=== PATIENT | female | born 1955 | race Caucasian/White ===

== ENCOUNTER 2020-01-26 09:01 | Outpatient (CLI) | payer OTHER, SELFPAY ==
[2020-01-26 09:27] LABS: Alanine Aminotransferase 17 U/L (4-35); Albumin Level 4.4 g/dL (3.5-5.1); Alkaline Phosphatase 92 U/L (38-126); Aspartate Amino Transferase 23 U/L (14-36); Bilirubin,Total 0.4 mg/dL (0.2-1.3); Blood Urea Nitrogen 15 mg/dL (7-17); Calcium 9.1 mg/dL (8.4-10.2); Carbon Dioxide 27 mmol/L (22-30); Chloride 103 mmol/L (98-107); Cholesterol 246 mg/dL (0-200); Estimated Glomerular Filt Rate > 60; Glucose 91 mg/dL (65-105); HDL Direct 34 mg/dL; Potassium 4.5 mmol/L (3.4-5.0); Sodium 136 mmol/L (137-145); Triglycerides 250 mg/dL (<150)
[2020-01-26 09:38] LABS: LDL Cholesterol Direct 157 mg/dL
== END 2020-01-26 09:02 | disposition home or self-care (01) ==
LOC: ANHLAB 09:03
PROVIDERS: PCP Family Medicine; Visit Provider Family Medicine
DX: E78.5 Hyperlipidemia, unspecified (principal); I10 Essential (primary) hypertension
CPT/HCPCS: 36415; 80053; 80061

== ENCOUNTER 2020-09-24 11:28 | Outpatient (CLI) | payer OTHER, SELFPAY | END 2020-09-24 11:29 | disposition home or self-care (01) | LOC: ANHCOVIDVC 11:28 | PROVIDERS: PCP Family Medicine | DX: Z23 Encounter for immunization (principal) | CPT/HCPCS: 0001A; 91300 ==

== ENCOUNTER 2020-10-15 11:32 | Outpatient (CLI) | payer OTHER, SELFPAY | END 2020-10-15 11:33 | disposition home or self-care (01) | LOC: ANHCOVIDVC 11:32 | PROVIDERS: PCP Family Medicine | DX: Z23 Encounter for immunization (principal) | CPT/HCPCS: 0002A; 91300 ==

== ENCOUNTER 2021-02-07 07:16 | Outpatient (CLI) | payer OTHER, SELFPAY ==
[2021-02-07 07:35] LABS: Hematocrit 38.2 % (37.0-47.0); Hemoglobin 11.6 g/dL (12.0-15.0); Mean Corpuscular HGB Conc 30.4 g/dl (32-36); Mean Corpuscular Hemoglobin 27.8 pg (26-34); Mean Corpuscular Volume 91.6 fl (80-100); Mean Platelet Volume 11.8 fl (7.4-10.4); Platelet Count Result 227 k/mm3 (150-375); Red Blood Count 4.17 M/mm3 (4.2-5.4); Red Cell Distribution Width 14.6 % (11.5-14.5); White Blood Count 8.1 K/mm3 (4.5-10.0)
[2021-02-07 07:45] LABS: Alanine Aminotransferase 22 U/L (4-35); Albumin Level 4.3 g/dL (3.5-5.1); Alkaline Phosphatase 88 U/L (38-126); Anion Gap 9 mmol/L (8-16); Aspartate Amino Transferase 23 U/L (14-36); Bilirubin,Total 0.6 mg/dL (0.2-1.3); Blood Urea Nitrogen 11 mg/dL (7-17); Calcium 9.5 mg/dL (8.4-10.2); Carbon Dioxide 29 mmol/L (22-30); Chloride 102 mmol/L (98-107); Cholesterol 230 mg/dL (0-200); Estimated Glomerular Filt Rate > 60; Glucose 93 mg/dL (65-110); HDL Direct 35 mg/dL; Potassium 4.4 mmol/L (3.4-5.0); Sodium 140 mmol/L (137-145); Triglycerides 238 mg/dL (<150)
[2021-02-07 07:55] LABS: LDL Cholesterol Direct 136 mg/dL
[2021-02-07 08:27] LABS: Vitamin D 25 Hydroxy 13.1 ng/mL
[2021-02-07 09:23] LABS: Hemoglobin A1C 5.5 % (<5.7)
== END 2021-02-07 07:17 | disposition home or self-care (01) ==
PROVIDERS: PCP Family Medicine; Visit Provider Family Medicine
DX: Z00.00 Encounter for general adult medical examination without abnormal findings (principal); I10 Essential (primary) hypertension; E78.2 Mixed hyperlipidemia; E55.9 Vitamin D deficiency, unspecified; R53.83 Other fatigue; E11.9 Type 2 diabetes mellitus without complications
CPT/HCPCS: 36415; 80053; 80061; 82306; 83036; 84443; 85027

== ENCOUNTER 2021-12-05 13:08 | Emergency (ER) | payer OTHER, SELFPAY ==
[2021-12-05 13:20] VITALS: BP 143/73; PULSE 87; RESP 16; TEMP 36.4; O2SAT 98
--- NOTE | 2021-12-05 13:40 | ED.GENADULT ---
HPI - General Adult General Chief complaint: Upper Respiratory Infection Stated complaint: uti symptoms Source: patient Mode of arrival: ambulatory Limitations: no limitations History of Present Illness HPI narrative: Patient presents for evaluation of urinary symptoms that started yesterday. Symptoms include dysuria and hematuria. She denies any fever, chills, nausea, vomiting, abdominal pain, flank pain, urinary urgency or hesitancy. No history of UTI but believes her current symptoms are consistent with UTI. No vaginal bleeding or discharge. No additional complaints or concerns. Related Data Home Medications Medication Instructions Recorded Confirmed albuterol sulfate 2 inh INHALATION DAILY 08/11/19 12/05/21 [id number] 1 inh INHALATION DAILY 12/05/21 12/05/21 [Trelegy Ellipta] levocetirizine 5 mg PO DAILY 12/05/21 12/05/21 Allergies Allergy/AdvReac Type Severity Reaction Status Date / Time bacitracin Allergy Unknown Unknown Verified 12/05/21 13:15 gramicidin D Allergy Unknown Unknown Verified 12/05/21 13:15 nickel Allergy Unknown Unknown Verified 12/05/21 13:15 polymyxin B Allergy Unknown Unknown Verified 12/05/21 13:15 BACITRACIN ZINC Allergy Unknown Unknown Uncoded 12/05/21 13:15 NEOMYCIN SULFATE Allergy Unknown Unknown Uncoded 12/05/21 13:15 POLYMYXIN B SULFATE Allergy Unknown Unknown Uncoded 12/05/21 13:15 Review of Systems Review of Systems: CONSTITUTIONAL: Denies fever, chills, or sweats. EYES: Denies visual changes, redness, or discharge. ENT: Denies rhinorrhea, congestion, sore throat, or otalgia. CARDIOVASCULAR: Denies chest pain, palpitations, or edema. RESPIRATORY: Denies cough or dyspnea. GASTROINTESTINAL: Denies abdominal pain, nausea, vomiting, or diarrhea. GENITOURINARY: Reports dysuria and hematuria. SKIN: Denies rash or itching. MUSCULOSKELETAL: Denies back pain, joint pain, or myalgia. NEUROLOGIC: Denies headache, numbness, dizziness, or weakness. PSYCHIATRIC: Denies anxiety or depression. [facility] Past Medical History Medical History Acne vulgaris Arnold-Chiari malformation Focal dystonia Hypercholesterolemia Hypertension Normal colonoscopy Torticollis Surgical History Surgical History History of hysterectomy Hx of tonsillectomy Family History Family History Mother Breast cancer Hypertension Heart disease Osteoporosis Social History Social History Smoking packs per day: 1 Smoking cigarettes per day: 20.0 Years smoked: 40 Smoking pack-years: 40.00 Second hand tobacco smoke exposure: Yes Smoking end date: 07/18/16 Alcohol intake: current Alcohol use details: rare Substance use: never Substance use type: does not use Gender identity (if verbalized by the patient): Female Exam Narrative: GENERAL: Well-appearing, well-nourished, and in no acute distress. HEAD: Normocephalic, atraumatic. EYES: PERRLA and EOMI. ENT: Nares clear, no rhinorrhea or epistaxis. Mucous membranes moist. Oropharynx without tonsillar hypertrophy exudate or other lesions. Bilateral TMs pearly santos nonbulging NECK: Supple. No adenopathy or masses. No carotid bruits or JVD CHEST: Clear to auscultation. No respiratory distress. No wheezes rales or rhonchi HEART: Regular rate and rhythm. No murmur heard. Normal peripheral pulses. ABDOMEN: Soft, nontender, nondistended, normal active bowel sounds. EXTREMITIES: Normal range of motion. No edema. SKIN: Warm, dry, no rash. NEURO: No focal deficits. Alert and oriented x3. PSYCH: Normal mood and affect. Course Course Emergency Course: This is a 66-year-old female who presented with complaints of dysuria and hematuria. Urine showed 1+ leukocytes and blood present. Exam con
== END 2021-12-05 13:41 | disposition home or self-care (01) ==
PROVIDERS: Emergency Provider Nurse Practitioner; PCP Family Medicine
DX: N39.0 Urinary tract infection, site not specified (principal); Z87.891 Personal history of nicotine dependence; E78.00 Pure hypercholesterolemia, unspecified; I10 Essential (primary) hypertension
CPT/HCPCS: 81003; 87086; 87088; 99213; G0463

== ENCOUNTER 2023-03-14 15:23 | Emergency (ER) | payer MEDICARE, SELFPAY ==
[2023-03-14 15:32] VITALS: BP 145/78; PULSE 84; RESP 16; TEMP 36.3; O2SAT 96
--- NOTE | 2023-03-14 15:53 | ED.FEMALEGU ---
HPI - Female Genitourinary General Chief complaint: Urogenital-Female Stated complaint: Uti symptoms Time Seen by Provider: 03/14/23 15:53 Source: patient, RN notes reviewed and old records reviewed Mode of arrival: ambulatory Limitations: no limitations History of Present Illness HPI Narrative: 67-year-old female presents to the [facility] with complaints of burning, frequency, urgency and blood in her urine since yesterday. No treatment prior to arrival. Denies fevers, abdominal pain, back pain. No CVA tenderness Onset (ago): day(s) (1) Related Data Home Medications Medication Instructions Recorded Confirmed albuterol sulfate 90 mcg/actuation 2 inh inhalation DAILY 08/11/19 03/14/23 aerosol inhaler levocetirizine 5 mg tablet 5 mg PO DAILY 12/05/21 03/14/23 metoprolol succinate 100 mg 100 mg PO DAILY 03/14/23 03/14/23 tablet,extended release 24 hr Allergies Allergy/AdvReac Type Severity Reaction Status Date / Time bacitracin Allergy Unknown Unknown Verified 03/14/23 15:48 gramicidin D Allergy Unknown Unknown Verified 03/14/23 15:48 nickel Allergy Unknown Unknown Verified 03/14/23 15:48 polymyxin B Allergy Unknown Unknown Verified 03/14/23 15:48 BACITRACIN ZINC Allergy Unknown Unknown Uncoded 03/14/23 15:48 NEOMYCIN SULFATE Allergy Unknown Unknown Uncoded 03/14/23 15:48 POLYMYXIN B SULFATE Allergy Unknown Unknown Uncoded 03/14/23 15:48 Review of Systems Review of Systems: All systems reviewed & are unremarkable except as noted in HPI and below Constitutional: Constitutional: Reports no additional constitutional complaints Eyes: Eyes: Reports no additional eye complaints ENT: Reports system reviewed and no additional complaints, except as documented Cardiovascular: Cardiovascular: Reports no additional cardiovascular complaints, Denies chest pain and Denies dyspnea Respiratory: Respiratory: Reports no additional respiratory complaints, Denies chest congestion, Denies cough and Denies dyspnea Gastrointestinal: Gastrointestinal: Reports no additional gastrointestinal complaints, Denies abdominal pain, Denies nausea and Denies vomiting Genitourinary: Genitourinary: Reports as per HPI and Reports dysuria Musculoskeletal: Musculoskeletal: Reports no additional musculoskeletal complaints Integumentary/Breasts: Skin/Breast: Reports system reviewed and no additional complaints, except as docu Neurologic: Reports system reviewed and no additional complaints, except as documented Psychiatric: Psychiatric: Reports no additional psychiatric complaints Allergic/Immunologic: Allergic/Immunologic: Reports no additional allergic/immunologic complaints [facility] Past Medical History Medical History Acne vulgaris Arnold-Chiari malformation Focal dystonia Hypercholesterolemia Hypertension Normal colonoscopy Torticollis Surgical History Surgical History History of hysterectomy Hx of tonsillectomy Family History Family History Mother Breast cancer Hypertension Heart disease Osteoporosis Social History Social History Smoking packs per day: 1 Smoking cigarettes per day: 20.0 Years smoked: 40 Smoking pack-years: 40.00 Second hand tobacco smoke exposure: Yes Smoking end date: 07/18/16 Alcohol intake: current Alcohol use details: rare Substance use: never Substance use type: does not use Living arrangements: with family Occupation/Education: occupation Gender identity (if verbalized by the patient): Female Comments At the time of my signature, I reviewed and agree with the nursing past medical, surgical, social, and family history. There is no relevant family history pertinent to the patient complaint. Exam Const: General: cooperative, healthy appearing, comfort
== END 2023-03-14 16:03 | disposition home or self-care (01) ==
PROVIDERS: Emergency Provider Nurse Practitioner; PCP Family Medicine
DX: N30.01 Acute cystitis with hematuria (principal); Z87.891 Personal history of nicotine dependence; E78.00 Pure hypercholesterolemia, unspecified; I10 Essential (primary) hypertension
CPT/HCPCS: 81003; 87077; 87086; 87186; 99213; G0463

== ENCOUNTER 2023-06-28 14:51 | Emergency (ER) | payer MEDICARE, SELFPAY ==
[2023-06-28 14:57] VITALS: BP 121/90; PULSE 85; RESP 16; TEMP 36.8; O2SAT 99
--- NOTE | 2023-06-28 14:58 | ED.FEMALEGU ---
HPI - Female Genitourinary General Chief complaint: Urogenital-Female Stated complaint: UTI SYMPTOMS Time Seen by Provider: 06/28/23 15:00 Source: patient Mode of arrival: ambulatory Limitations: no limitations History of Present Illness HPI Narrative: Nirmala is a 67 year old female patient presenting to the clinic today with c/o possible UTI. She reports she is having burning, frequency, hematuria, and urgency x 2 days. She denies any fever, chills, abdomen pain, or flank pain. Related Data Home Medications Medication Instructions Recorded Confirmed albuterol sulfate 90 mcg/actuation 2 inh inhalation DAILY 08/11/19 06/23/23 aerosol inhaler levocetirizine 5 mg tablet 5 mg PO DAILY 12/05/21 06/23/23 azelastine 137 mcg (0.1 %) nasal 137 mcg intranasal Q12H 06/23/23 06/23/23 spray aerosol fluticasone fur. 100 mcg-umeclid 1 inh inhalation DAILY 06/23/23 06/23/23 62.5 mcg-vilant 25 mcg inhalat.powder (Trelegy Ellipta) Allergies Allergy/AdvReac Type Severity Reaction Status Date / Time bacitracin Allergy Unknown Unknown Verified 06/28/23 15:27 gramicidin D Allergy Unknown Unknown Verified 06/28/23 15:27 nickel Allergy Unknown Unknown Verified 06/28/23 15:27 polymyxin B Allergy Unknown Unknown Verified 06/28/23 15:27 BACITRACIN ZINC Allergy Unknown Unknown Uncoded 06/28/23 15:27 NEOMYCIN SULFATE Allergy Unknown Unknown Uncoded 06/28/23 15:27 POLYMYXIN B SULFATE Allergy Unknown Unknown Uncoded 06/28/23 15:27 [facility] Past Medical History Medical History (Updated 06/28/23 @ 15:19 by Maurilio Phoenix APRN) Arnold-Chiari malformation Asthma Focal dystonia Hypercholesterolemia Hypertension Normal colonoscopy Torticollis Surgical History Surgical History History of hysterectomy Hx of tonsillectomy Family History Family History Mother Breast cancer Hypertension Heart disease Osteoporosis Social History Social History Smoking packs per day: 1 Smoking cigarettes per day: 20.0 Years smoked: 40 Smoking pack-years: 40.00 Smoking status: Never smoker Second hand tobacco smoke exposure: Yes Smoking end date: 07/18/16 Alcohol intake: current Alcohol use details: rare Substance use: never Substance use type: does not use Living arrangements: with family Occupation/Education: occupation Gender identity (if verbalized by the patient): Female Comments At the time of my signature, I reviewed and agree with the nursing past medical, surgical, social, and family history. There is no relevant family history pertinent to the patient complaint. Exam Narrative: General: Well-developed, well nourished, in no apparent distress. Head: Normocephalic, atraumatic. Cardio: Regular rate and rhythm, s1 and s2 normal, no murmur appreciated. Resp: Clear to auscultation bilaterally, no rhonchi, rales, wheezing or rubs. Abdomen: Soft, pliable, bowel sounds present in all quadrants, non-tender to palpation, no organomegly, no CVAT tenderness. Course Course Emergency Course: Portions of this record may have been created with voice recognition software. Level of Care: Express Care Visit Vital Signs Vital signs: Vital Signs Temperature 36.8 C 06/28/23 14:57 Pulse Rate 85 06/28/23 14:57 Respiratory Rate 16 06/28/23 14:57 Blood Pressure 121/90 06/28/23 14:57 Pulse Oximetry 99 06/28/23 14:57 Temperature 36.8 C 06/28/23 14:57 Pulse Rate 85 06/28/23 14:57 Respiratory Rate 16 06/28/23 14:57 Blood Pressure 121/90 06/28/23 14:57 Pulse Oximetry 99 06/28/23 14:57 Vital signs reviewed MDM - Female Genitourinary MDM Narrative Medical decision making narrative: At the time of visit patient is resting comfortably on the exam table. UA dip was positive for leukocy
== END 2023-06-28 15:26 | disposition home or self-care (01) ==
PROVIDERS: Emergency Provider Nurse Practitioner Family; PCP Family Medicine
DX: N30.01 Acute cystitis with hematuria (principal); Z87.891 Personal history of nicotine dependence; J45.909 Unspecified asthma, uncomplicated; E78.00 Pure hypercholesterolemia, unspecified; I10 Essential (primary) hypertension; G24.9 Dystonia, unspecified
CPT/HCPCS: 81003; 87086; 87088; 99213; G0463

== ENCOUNTER 2024-02-14 14:38 | Outpatient (CLI) | payer MEDICARE, SELFPAY ==
[2024-02-14 15:06] LABS: Hematocrit 43.4 % (37.0-47.0); Mean Corpuscular HGB Conc 32.3 g/dl (32-36); Mean Corpuscular Volume 93.1 fl (80-100); Platelet Count Result 247 k/mm3 (150-375); Red Blood Count 4.66 M/mm3 (4.2-5.4); Red Cell Distribution Width 13.7 % (11.5-14.5); White Blood Count 6.8 K/mm3 (4.5-10.0)
== END 2024-02-14 14:39 | disposition home or self-care (01) ==
PROVIDERS: PCP Family Medicine; Visit Provider Physician Assistant
DX: D64.9 Anemia, unspecified (principal); E66.9 Obesity, unspecified; Z13.220 Encounter for screening for lipoid disorders; Z13.1 Encounter for screening for diabetes mellitus
CPT/HCPCS: 36415; 85027

== ENCOUNTER 2024-02-15 14:15 | Outpatient (CLI) | payer MEDICARE, SELFPAY ==
[2024-02-15 14:44] LABS: Alanine Aminotransferase 16 U/L (6-35); Albumin Level 4.6 g/dL (3.5-5.1); Alkaline Phosphatase 96 U/L (38-126); Anion Gap 11 mmol/L (4-12); Aspartate Amino Transferase 20 U/L (14-36); Bilirubin,Total 0.8 mg/dL (0.2-1.3); Blood Urea Nitrogen 16 mg/dL (7-17); Calcium 9.7 mg/dL (8.4-10.2); Carbon Dioxide 26 mmol/L (22-30); Chloride 102 mmol/L (98-107); Cholesterol 275 mg/dL (0-200); Estimated Glomerular Filt Rate > 60; Glucose 95 mg/dL (65-110); HDL Direct 33 mg/dL; Potassium 4.2 mmol/L (3.4-5.0); Sodium 139 mmol/L (137-145); Triglycerides 205 mg/dL (<150)
[2024-02-15 14:55] LABS: LDL Cholesterol Direct 201 mg/dL
== END 2024-02-15 14:16 | disposition home or self-care (01) ==
PROVIDERS: PCP Family Medicine; Visit Provider Physician Assistant
DX: Z13.1 Encounter for screening for diabetes mellitus (principal); Z13.220 Encounter for screening for lipoid disorders; E66.9 Obesity, unspecified
CPT/HCPCS: 36415; 80053; 80061

== ENCOUNTER 2024-04-19 07:00 | Outpatient (NON) | payer MEDICARE, SELFPAY | END 2024-04-19 07:01 | disposition home or self-care (01) | LOC: ANHLAB 04-20 10:13 | PROVIDERS: PCP Family Medicine; Visit Provider Internal Medicine Gastroenterology | DX: D12.2 Benign neoplasm of ascending colon (principal); K63.5 Polyp of colon; D12.8 Benign neoplasm of rectum; Z86.0100 Personal history of colon polyps, unspecified | CPT/HCPCS: 88305 ==

== ENCOUNTER 2024-04-19 07:32 | Day surgery (SDC) | payer MEDICARE, SELFPAY ==
[2024-03-14 15:09] VITALS: BMI 36.3
[2024-04-11 13:51] VITALS: BMI 36.1
--- NOTE | 2024-04-18 16:12 | WPDANESEPPF ---
Anes - Initial Pre Proc Eval Procedure: Operation Date: 04/19/24 09:30 Proposed Procedures p Diagnostic Colonoscopy - Aleksey Coley MD Date/Time: 04/18/24 16:12 Surgeon: Aleksey Coley MD Pre Op Diagnosis: History of Colon Polyps Patient Data Age: 68 Gender: F Height: 1.52 m Weight: 84 kg Allergies Allergy/AdvReac Type Severity Reaction Status Date / Time gramicidin D Allergy Mild Blister Verified 04/19/24 08:09 nickel Allergy Mild Blister Verified 04/19/24 08:09 BACITRACIN ZINC Allergy Mild Blister Uncoded 04/19/24 08:09 NEOMYCIN SULFATE Allergy Mild Blister Uncoded 04/19/24 08:09 POLYMYXIN B SULFATE Allergy Mild Blister Uncoded 04/19/24 08:09 Home Medications Medication Instructions Recorded Confirmed Type albuterol sulfate 90 mcg/actuation 2 inh inhalation DAILY 08/11/19 04/19/24 History aerosol inhaler levocetirizine 5 mg tablet 5 mg PO DAILY 12/05/21 04/19/24 History azelastine 137 mcg (0.1 %) nasal 137 mcg intranasal Q12H 06/23/23 04/19/24 History spray fluticasone fur. 100 mcg-umeclid 1 inh inhalation DAILY 06/23/23 04/19/24 History 62.5 mcg-vilant 25 mcg inhalat.powder (Trelegy Ellipta) sulfacetamide sodium (acne) 10 % 1 applic topical BID #118 mL 02/15/24 04/19/24 Rx lotion (suspension) rosuvastatin 5 mg tablet 5 mg PO DAILY #30 tabs 02/20/24 04/19/24 Rx escitalopram oxalate 5 mg tablet 5 mg PO DAILY #90 tabs 04/13/24 04/19/24 Rx metoprolol succinate 100 mg 100 mg PO DAILY #90 tabs 04/13/24 04/19/24 Rx tablet,extended release 24 hr Patient hx anesthesia problems: none Family hx anesthesia problems: none Results Review: All pre-operative results and documents have been reviewed as part of the pre-operative evaluation. [facility] Past Medical History Medical History (Updated 04/19/24 @ 08:31 by lAeksey Coley MD) Arnold-Chiari malformation Asthma COPD (chronic obstructive pulmonary disease) Focal dystonia Hypercholesterolemia Hypertension Normal colonoscopy Torticollis Surgical History Surgical History History of hysterectomy Hx of tonsillectomy Family History Family History Mother Breast cancer Hypertension Heart disease Osteoporosis Social History Social History Smoking packs per day: 1 Smoking cigarettes per day: 20.0 Years smoked: 40 Smoking pack-years: 40.00 Smoking status: Former smoker Tobacco type: cigarettes Second hand tobacco smoke exposure: Yes Smoking end date: 07/18/16 Alcohol intake: current Drinks per week: 1 Alcohol use details: RARE Substance use: never Substance use type: does not use Living arrangements: alone Occupation/Education: occupation Gender identity (if verbalized by the patient): Female Spiritual care concerns: No Anes - Eval Final PreProcedure Day of Procedure 04/18/24 16:12 Patient weight: obese Heart: regular rate and rhythm Lungs: clear to auscultation Airway: Mallampati scale class II Neurological: alert and oriented Last oral intake: >/= 8 hours ASA classification: III Emergent: no Anesthetic plan: proceed Anesthesia type and monitoring: general GIVS and standard monitoring Results Review: All pre-operative results and documents have been reviewed as part of the pre-operative evaluation. Informed Consent: The patient's anesthetic plan and its attendant risks and benefits were discussed with the patient/family/POA. Questions were solicited and answers provided to the satisfaction of the patient/family/POA.
[2024-04-19 08:13] VITALS: BP 176/101; PULSE 66; RESP 20; TEMP 36.3; O2SAT 97; BMI 35.1
[2024-04-19] MEDS: LACTATED RINGERS 1,000 ML 150 ML IV CONT (08:26)
--- NOTE | 2024-04-19 08:30 | PM.HPGS ---
History of Present Illness History of Present Illness Consent: Risks, benefits, and alternatives have been discussed and questions answered. Patient agrees to proceed with procedure. Chief complaint: History of Colon Polyps Narrative: Nirmala Pérez is a 68 year old female presents for screening colonoscopy. Patient's current weight appetite and bowel is are normal. Patient denies abdominal pain. She has had no bleeding. Previous colonoscopy in 2014 revealed benign adenomatous colon polyp. Review of Systems Review of Systems: All systems reviewed & are unremarkable except as noted in HPI and below PMFSH Past Medical History Medical History (Updated 04/19/24 @ 08:31 by Aleksey Coley MD) Arnold-Chiari malformation Asthma COPD (chronic obstructive pulmonary disease) Focal dystonia Hypercholesterolemia Hypertension Normal colonoscopy Torticollis Surgical History Surgical History History of hysterectomy Hx of tonsillectomy Family History Family History Mother Breast cancer Hypertension Heart disease Osteoporosis Social History Social History Smoking packs per day: 1 Smoking cigarettes per day: 20.0 Years smoked: 40 Smoking pack-years: 40.00 Smoking status: Former smoker Tobacco type: cigarettes Second hand tobacco smoke exposure: Yes Smoking end date: 07/18/16 Alcohol intake: current Drinks per week: 1 Alcohol use details: RARE Substance use: never Substance use type: does not use Living arrangements: alone Occupation/Education: occupation Gender identity (if verbalized by the patient): Female Spiritual care concerns: No Meds Home Medications and Allergies Home Medications Medication Instructions Recorded Confirmed Type albuterol sulfate 90 mcg/actuation 2 inh inhalation DAILY 08/11/19 04/19/24 History aerosol inhaler levocetirizine 5 mg tablet 5 mg PO DAILY 12/05/21 04/19/24 History azelastine 137 mcg (0.1 %) nasal 137 mcg intranasal Q12H 06/23/23 04/19/24 History spray fluticasone fur. 100 mcg-umeclid 1 inh inhalation DAILY 06/23/23 04/19/24 History 62.5 mcg-vilant 25 mcg inhalat.powder (Trelegy Ellipta) sulfacetamide sodium (acne) 10 % 1 applic topical BID #118 mL 02/15/24 04/19/24 Rx lotion (suspension) rosuvastatin 5 mg tablet 5 mg PO DAILY #30 tabs 02/20/24 04/19/24 Rx escitalopram oxalate 5 mg tablet 5 mg PO DAILY #90 tabs 04/13/24 04/19/24 Rx metoprolol succinate 100 mg 100 mg PO DAILY #90 tabs 04/13/24 04/19/24 Rx tablet,extended release 24 hr Allergies Allergy/AdvReac Type Severity Reaction Status Date / Time gramicidin D Allergy Mild Blister Verified 04/19/24 08:09 nickel Allergy Mild Blister Verified 04/19/24 08:09 BACITRACIN ZINC Allergy Mild Blister Uncoded 04/19/24 08:09 NEOMYCIN SULFATE Allergy Mild Blister Uncoded 04/19/24 08:09 POLYMYXIN B SULFATE Allergy Mild Blister Uncoded 04/19/24 08:09 Vital Signs Vital Signs - 24 hr 04/19/24 08:13 Temperature 97.3 F L Pulse Rate 66 Respiratory Rate 20 Blood Pressure 176/101 H Pulse Oximetry 97 Oxygen Delivery Room Air Exam Narrative: Exam reveals patient to be alert. Vital signs stable. HEENT exam is unremarkable. Patient is anicteric. Lungs are clear to auscultation and percussion. This without murmur or extra sounds. Abdomen bowel sounds are present soft nontender with no hepatosplenomegaly. Digital external rectal exam is normal. Assessment and Plan Assessment and plan (1) History of colon polyps: Code(s): Z86.0100 - Personal history of colon polyps, unspecified Status: Acute Assessment and Plan: Patient has a history of adenomatous colon polyp removed in 2013. Plan for surveillance colonoscopy at this time. Further recommendations may be given after endoscopy.
[2024-04-19 10:03] VITALS: BP 156/73; PULSE 78; RESP 16; O2SAT 90
[2024-04-19 10:13] VITALS: BP 137/77; PULSE 68; RESP 16; O2SAT 99
[2024-04-19 10:23] VITALS: BP 135/82; PULSE 63; RESP 18; O2SAT 100
--- NOTE | 2024-04-19 12:03 | WPDANESPN ---
Anes - Prog Note Post-Op Date/Time: 04/19/24 12:03 Cardiovascular status: normal Respiratory status: normal Airway patency: baseline Mental status: baseline Post-Op hydration status: normal Vital Signs: Last Vital Signs Temp 36.3 C L 04/19/24 08:13 Pulse 63 04/19/24 10:23 Resp 18 04/19/24 10:23 BP 135/82 04/19/24 10:23 Pulse Ox 100 04/19/24 10:23 O2 Del Method Room Air 04/19/24 10:23 Pain Score (VAS): 0 I/O: Intake & Output 04/18/24 04/19/24 04/19/24 23:59 07:59 15:59 Intake Total 950 Balance 950 Post-procedural complaints: none Patient Feedback: Patient satisfied with anesthetic care. Other Findings: Patient vital signs back to baseline. Patient denies nausea and vomiting. Patient's pain under control. Patient OK for discharge.
== END 2024-04-19 10:29 | disposition home or self-care (01) ==
PROVIDERS: PCP Family Medicine; Visit Provider Internal Medicine Gastroenterology
PROC: 0DJD8ZZ Inspection of Lower Intestinal Tract, Via Natural or Artificial Opening Endoscopic (ICD-10-PCS; CPT 45378; principal; 2024-04-19 09:30)
DX: Z86.0100 Personal history of colon polyps, unspecified (principal); D12.2 Benign neoplasm of ascending colon; D12.8 Benign neoplasm of rectum; K57.30 Diverticulosis of large intestine without perforation or abscess without bleeding; K64.8 Other hemorrhoids
CPT/HCPCS: 45385

== ENCOUNTER 2024-06-12 08:47 | Outpatient (CLI) | payer MEDICARE, SELFPAY ==
--- NOTE | ~2024-06-12 | MM_ITS ---
EXAMINATION: MM screening percy BI w brian HISTORY: Screening TECHNIQUE: Craniocaudal and mediolateral oblique 3-D tomosynthesis images were obtained and synthetic 2-D images were generated. CAD analysis was submitted and interpreted. COMPARISON: Comparison to multiple prior studies sequentially, with oldest reviewed study dated 09/02. BREAST PARENCHYMAL COMPOSITION: Not dense: There are scattered areas of fibroglandular density. FINDINGS: There is no evidence of suspicious mass, calcification, or architectural distortion to sugg est malignancy in either breast. There has been no suspicious interval change. IMPRESSION: 1. No mammographic evidence of malignancy. 2. Recommend routine screening mammography in one year. BI-RADS Category 1: Negative Reviewed, dictated and finalized at location B. ITY MANAGER
== END 2024-06-12 08:48 | disposition home or self-care (01) ==
LOC: ANHIMG 08:48
PROVIDERS: PCP Family Medicine; Visit Provider Family Medicine
DX: Z12.31 Encounter for screening mammogram for malignant neoplasm of breast (principal)
CPT/HCPCS: 77063; 77067

== ENCOUNTER 2024-08-09 13:45 | Outpatient (CLI) | payer MEDICARE, SELFPAY ==
--- NOTE | ~2024-08-09 | DEXA_ITS ---
Bone Density Report Name: DALJIT OLIVER Age: 68 Sex: Female Ethnicity: White Date of : 1955 Indication: osteopenia; asthma or emphysema; hysterectomy; Referring Provider: FAUSTO MONTILLA Study: Bone densitometry was performed. Exam Date: August 09, 2024 Accession number: [id number] Bone Density: Region BMD T-score Z-score Classification AP Spine(L1-L4) 0.804 -2.2 -0.3 Osteopenia Femoral Neck (Left) 0.542 -2.8 -1.1 Osteoporosis Total Hip (Left) 0.721 -1.8 -0.4 Osteopenia Femoral Neck (Right) 0.581 -2.4 -0.7 Osteopenia Total Hip (Right) 0.745 -1.6 -0.2 Osteopenia Total Hip Mean 0.733 -1.7 -0.3 Osteopenia World Health Organization criteria for BMD impression classify patients as: Normal (T-score at or above -1.0), Osteopenia (T-score between -1.0 and -2.5), or Osteoporosis (T-score at or below -2.5). 10-year Fracture Risk: FRAX not reported because: Some T-score for Spine Total or Hip Total or Femoral Neck at or below -2.5 Previous Exams: Region Exam Age BMD T-score BMD Change BMD Change Date g/cm2 vs Baseline vs Previous AP Spine (L1-L4) 08/09/2024 68 0.804 -2.2 -0.005 (-0.6%) -0.007 (-0.9%) 10/16/2016 61 0.811 -2.1 0.002 (0.2%)# 0.002 (0.2%)# 04/22/2012 56 0.809 -2.2 Total Hip(Left) 08/09/2024 68 0.721 -1.8 -0.059 (-7.5%) -0.030 (-4.1%) 10/16/2016 61 0.751 -1.6 -0.028 (-3.6%) -0.028 (-3.6%) 04/22/2012 56 0.779 -1.3 Total Hip(Right) 08/09/2024 68 0.745 -1.6 -0.043 (-5.5%) -0.031 (-4.0%) 10/16/2016 61 0.775 -1.4 -0.012 (-1.6%) -0.012 (-1.6%) 04/22/2012 56 0.788 -1.3 *Denotes significance at 95% confidence level, LSC for AP Spine = 0.022 g/cm2, LSC for Total Hip = 0.027 g/cm2 # Denotes dissimilar scan types or analysis methods Clinical Information Provided by Patient: Has the following medical conditions: Asthma or Emphysema, Hysterectomy Patient maximum height was 60 No regular weight bearing exercise Does not regularly consume dairy products Drinks caffeinated beverages Onset of menses at age 13 Number of children 0 Impression: The patient has osteoporosis, based on the Left Femoral Neck T-score. The BMD for the Total Hip(Left) decreased, changing by -4.1% since the last DXA exam. The BMD for the Total Hip(Right) decreased, changing by -4.0% since the last DXA exam. Discussion: INCREASED RISK OF FRACTURE. BONE DENSITY IS UNDESIRABLY LOW AT ONE OR MORE SKELETAL SITES, CONSISTENT WITH POSTMENOPAUSAL OSTEOPOROSIS. This patient's lowest T-score meets the World Health Organization's (WHO) criteria for osteoporosis at one or more sites (T-score -2.5 or below). In untreated patients, the risk of osteoporotic fracture increases approximately two-fold for each 1.0 SD decrease in T-score. Low bone density is not the only risk factor for fracture; also consider factors such as patient's age, frailty or poor health, risk of falling, risk of injury, previous osteoporotic fracture, family history of osteoporosis, cigarette smoking, low body weight, etc. Not everyone with low bone mineral density has osteoporosis; osteomalacia and other metabolic bone disorders should also be considered. Patients who have osteoporosis should be evaluated for specific diseases and conditions (secondary causes) that may cause or contribute to bone loss. The [place] Association of Clinical Endocrinologists (AACE) and National Osteoporosis Foundation (NOF) recommend pharmacologic intervention for all postmenopausal women whose T-score is in this range. The patient should follow a healthful lifestyle (good nutrition with adequate calcium and vitamin D, and appropriate weight-bearing exercise). Follow-Up: Consider a repeat BMD and Vertebral Fracture Assessment (VFA) exam in 2 years or sooner if medically necessary, to reassess this patient's status. Reported by: LUIS MIGUEL on 08/09/2024 2:30:00 PM. Reviewed, dictated and finalized at location ABeth HILLMAN
--- OUTSIDE RECORDS SUMMARY | 2024-08-10 05:18 | XMS_ITS | Clinical Summary ---
Author Organization [facility] Address [address] [place] [address]. 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 Gender Identity Not on file Sexual Orientation Not on file Plan of Treatment Health Maintenance Due Date Last Done Comments Colorectal Cancer Screening Colonoscopy (10 Years) 1955 Hepatitis C 1974 DTaP, Tdap and Td Vaccines ( 1 - Tdap) 10/08/1975 Mammogram Screening 1996 Zoster Vaccines (1 of 2) 2006 Dexa Scan (General) 2021 Pneumococcal Vaccine: 65+ Ye ars (1 of 1 - PCV) 2021 COVID-19 Vaccine ( - 2023-2 5 season) 2024 Influenza Adult (#1) 2024 RSV Immunization or 60+ Years (1 - 1-dose 75+ series) 10/08/2031 Meningococcal Vaccine Aged Out No nkechi roberto eligible based on patient's age to complete this topic RSV Immunizations Under 20 Months Aged Out No longer eligible based on patient's age to complete this topic Insurance [facility] OPEN ACCESS [facility] Care Teams Mystery Shopper Relationship Specialty Start Date End Date Manuela Miller MD PCP - General FAMILY PRACTICE 08/25/19
== END 2024-08-09 13:46 | disposition home or self-care (01) ==
PROVIDERS: PCP Family Medicine; Visit Provider Family Medicine
DX: M85.89 Other specified disorders of bone density and structure, multiple sites (principal); Z78.0 Asymptomatic menopausal state
CPT/HCPCS: 77080

== ENCOUNTER 2025-04-09 11:51 | Outpatient (CLI) | payer MEDICARE, SELFPAY ==
--- OUTSIDE RECORDS SUMMARY | 2023-12-31 16:30 | XMS_ITS ---
Author Organization [facility] ([address]) Address [address] [place] [address] Care Team Providers Care Paper Sample Clerk Name Role Phone PaulManuela Primary Care Provider UnavailSamantha Torres Unavailable [phone] [employer]-Migration, Provider Unavailable Unavailab le [facility] Encounter Medications Medication SIG (Take, Route, Frequency, Duration) Notes Start Date End Date Status Trelegy Ellipta 200 MCG-62.5 MCG-25 MCG/INH 1 PUFF(S) INHALED ONCE A DAY; Duration: 90 DAYS *Please review and pick correct strength-formulat ion from [employer] options. If intended option is not shown, discontinue and re-order from Quick Search* Active Metoprolol Succinate ER 100 MG Active Escitalopram Oxalate 5 MG 2 tab(s) orally once a day Active NASAL WASHES N/A DIRECTED INTRANASALLY NEEDED; Duration: 30 *Please review for potential replacement for e-prescription and drug interaction check* Active Flonase Allergy Relief 50 MCG/ACT 2 spray(s) in each nostril once a day; Duration: 30 day(s) Active PROAIR HFA 90 MCG/INH 2 PUFF(S) INHALED Q4-6 HOURS, PRN AND PER THE ASTHMA ACTION PLAN; Duration: 30 DAY(S) *Please review for potential replacement for e-prescription and drug interaction check* Active Levocetirizine Dihydrochloride 5 MG 1 tab(s) orally once a day (in the evening); Duration: 90 days Active Encounters Encounter Location Date Provider Diagnosis [facility] [address] 12/31/2023 Provider Lili Allergic rhinitis due to pollen J30.1 and Chronic obstructive pulmonary disease, unspecified J44.9 Assessments Encounter Date Diagnosis (ICD Code) Assessment Notes Treatment Notes Treatment Clinical Notes Section Notes 12/31/2023 Allergic rhinitis due to pollen (ICD-10 - J30.1) 12/31/2023 Chronic obstructive pulmonary disease, unspecified (ICD-10 - J44.9) Plan Of Treatment Medication Medication Name Sig Start Date Stop Date Notes Trelegy Ellipta 200 MCG-62.5 MCG-25 MCG/INH 1 PUFF(S) INHALED ONCE A DAY; Duration: 90 DAYS *Please review and pick correct strength-formulatio n from [employer] options. If intended option is not shown, discontinue and re-order from Quick Search* NASAL WASHES N/A DIRECTED INTRANASALLY NEEDED; Duration: 30 *Please review for potential replacement for e-prescription and drug interaction check* Flonase Allergy Relief 50 MCG/ACT 2 spray(s) in each nostril once a day; Duration: 30 day(s) PROAIR HFA 90 MCG/INH 2 PUFF(S) INHALED Q4-6 HOURS, PRN AND PER THE ASTHMA ACTION PLAN; Duration: 30 DAY(S) *Please review for potential replacement for e-prescription and drug interaction check* Levocetirizine Dihydrochloride 5 MG 1 tab(s) orally once a day (in the evening); Duration: 90 days Progress Notes * Nirmala OLIVEReDOB: [birth year] (69 yo F)Acc No.[id number]:12/31/2023 Patient: Nirmala MCGINNISnne Provider: Pako Rose :1955 A ge:68 Y S ex:Female Date:12/31/2023 [facility] [facility] Pcp:Manuela Miller Subjective: * Chief Complaints: * [facility] . [facility] * Medical History: * Medications: T aking Metoprolol Succinate ER 100 MG Tablet Extended Release 24 Hour , Taking Escitalopram Oxalate 5 MG Tablet 2 tab(s) orally once a day Objective: * Vitals: Assessment: * Assessment: 1. C hronic obstructive pulmonary disease, unspecified - J44.9 (Primary) 2 .?Allergic rhinitis due to pollen - J30.1 Plan: * Treatment: 2. A llergic rhinitis due to pollen Continue NASAL WASHES 1 QUART OF STERILIZED TAP WATER OR DISTILLED WATER, 1 TSP NACL, 1 PINCH OF BAKING SODA, N/A, DIRECTED, INTRANASALLY, NEEDED, 30, QS, Refills PRN, Notes to Pharmacist: *Please review for potential replacement for e-prescription and drug interaction check*; C ontinue Flonase Allergy Relief Suspension, 50 MCG/ACT, 2 spray(s), in each nostril, once a day, 30 day(s), 1, Refills 5. 3. O thers Start Levocetirizine Dihydrochloride Tablet, 5 MG, 1 tab(s), orally, once a day (in the evening), 90 days, 90, Refills 1. * Billing Information: * Visit Code: * Procedure Codes: * Electronic signature of Chepe CHIN-Migration on 04/09/2025 at 12:23 PM CDT Sign off status: Pending * Provider: Pako griffiths Migration Date: 12/31/2023 Generated for Franc farrell/Usha/Weston on: 04/09/2025 12:23 PM CDT
--- OUTSIDE RECORDS SUMMARY | 2024-02-29 10:15 | XMS_ITS ---
Author Organization [employer] [facility] [place] ([address]) Address [address] [place] [address] Care Team Providers Care Broadcast Operations Engineer Name Role Phone Manuela Miller Primary Care Provider Samantha Isbell Unavailable [phone] REASON FOR VISIT Asthma/COPD follow-up - much improvement with Trelegy Medications Medication SIG (Take, Route, Frequency, Duration) Notes Start Date End Date Status Metoprolol Succinate ER 100 MG Active Levocetirizine Dihydrochloride 5 MG 1 tab(s) orally once a day (in the evening); Duration: 90 days Active Escitalopram Oxalate 5 MG 2 tab(s) orally once a day Active NASAL WASHES N/A as directed intranasally as needed; Duration: 30 Active Azelastine HCl 137 MCG/SPRAY 2 puffs in each nostril Nasally Twice a day; Duration: 30 days 01/11/2024 Active TRELEGY ELLIPTA 200 mcg-62.5 mcg-25 mcg/inh 1 puff(s) inhaled once a day; Duration: 90 days Active FLONASE 50 mcg/inh 2 spray(s) in each nostril once a day; Duration: 30 day(s) Active Trelegy Ellipta 200 MCG-62.5 MCG-25 MCG/INH 1 PUFF(S) INHALED ONCE A DAY; Duration: 90 DAYS *Please review and pick correct strength-formulat ion from Medispan options. If intended option is not shown, discontinue and re-order from Quick Search* Active PROAIR HFA 90 mcg/inh 2 puff(s) inhaled Q4-6 hours, PRN and per the asthma action plan; Duration: 30 day(s) Active Flonase Allergy Relief 50 MCG/ACT 2 spray(s) in each nostril once a day; Duration: 30 day(s) Active LEVOCETIRIZINE DIHYDROCHLORIDE 5 mg 1 tab(s) orally once a day (in the evening); Duration: 90 days Active Encounters Encounter Location Date Provider Diagnosis [facility] [address] [address] 02/29/2024 Samantha Maldonado Allergic rhinitis du e to pollen J30.1 ; Chronic obstructive pulmonary disease, unspecified J44.9 ; Allergic rhinitis due to animal (cat) (dog) hair and dander J30.81 ; Other allergic rhinitis J30.89 ; Other chronic allergic conjunctivitis H10.45 ; Allergic contact dermatitis due to metals L23.0 and Allergic contact dermatitis due to drugs in contact with skin L23.3 Assessments Encounter Date Diagnosis (ICD Code) Assessment Notes Treatment Notes Treatment Clinical Notes Section Notes 02/29/2024 Allergic rhinitis due to pollen (ICD-10 - J30.1) Nirmala clearly suffers from atopic disease based on our skin testing. Accordingly, we have introduced a new, aggressive medication regimen, discussed nasal washes and allergy-specific avoidance measures. Astelin discontinued in the past due to epistaxis. Afrin to only be used occasionally. She would like to start immunotherapy, We specific allergen immunotherapy as relates to the treatment and prevention of atopic disease. She is currently considering the risks, benefits and alternatives to this care. Risks: bleeding, infection, allergic reaction, anaphylaxis; Benefits: reduced need for medications, improved symptoms, disease modification. She is taking metoprolol for HTN and we discussed the difficulty in treating systemic reactions in patients taking beta blockers. She takes metoprolol at night. When receiving immunotherapy while on beta blockers, normally, patients hold the beta rupesh the morning of immunotherapy and take the medication 2 hours after leaving the office. She is going to discuss with Dr. Miller. 02/29/2024 Chronic obstructive pulmonary disease, unspecified (ICD-10 - J44.9) COPD/asthma. Spirometry at last check shows possible restriction and in the past no improvement post bronchodilator. Per her report normal CXR -2019. She did not want spirometry performed today. ACT 20. Continue Trelegy and prn albuterol 02/29/2024 Allergic rhinitis due to animal (cat) (dog) hair and dander (ICD-10 - J30.81) Follow allergen avoidance, meds and consider SCIT as an adjunctive treatment to current regimen 02/29/2024 Other allergic rhinitis (ICD-10 - J30.89) 02/29/2024 Other chronic allergic conjunctivitis (ICD-10 - H10.45) Given ocular signs and symptoms I encouraged allergy avoidance measures and meds as above. If symptoms persist, consider adding additional medications including intraocular antihistamine/mas t cell stabilizer, PRN 02/29/2024 Allergic contact dermatitis due to metals (ICD-10 - L23.0) Nirmala appears to have contact dermatitis to nickel and neomycin. Recommend continued avoidance and consider patch testing in the future if needed 02/29/2024 Allergic contact dermatitis due to drugs in contact with skin (ICD-10 - L23.3) 02/29/2024 Other Plan Of Treatment Medication Medication Name Sig Start Date Stop Date Notes NASAL WASHES N/A as directed intranas ally as needed; Duration: 30 TRELEGY ELLIPTA 200 mcg-62.5 mcg-25 mcg/inh 1 puff(s) inhaled once a day; Duration: 90 days FLONASE 50 mcg/inh 2 spray(s) in each n ostril once a day; Duration: 30 day(s) PROAIR HFA 90 mcg/inh 2 puff(s) inhaled Q4-6 hours, PRN and per the asthma action plan; Duration: 30 day(s) LEVOCETIRIZINE DIHYDROCHLORI DE 5 mg 1 tab(s) orally once a day (in the evening); Duration: 90 days Treatment Notes Assessment Notes Allergic rhinitis due to pollen Nirmala clearly suffers from atopic disease based on our skin testing. Accordingly, we have introduced a new, aggressive medication regimen, discussed nasal washes and allergy-specific avoidance measures. Astelin discontinued in the past due to epistaxis. Afrin to only be used occasionally. She would like to start immunotherapy, We specific allergen immunotherapy as relates to the treatment and prevention of atopic disease. She is currently considering the risks, benefits and alternatives to this care. Risks: bleeding, infection, allergic reaction, anaphylaxis; Benefits: reduced need for medications, improved symptoms, disease modification. She is taking metoprolol for HTN and we discussed the difficulty in treating systemic reactions in patients taking beta blockers. She takes metoprolol at night. When receiving immunotherapy while on beta blockers, normally, patients hold the beta rupesh the morning of immunotherapy and take the medication 2 hours after leaving the office. She is going to discuss with Dr. Miller. Chronic obstructive pulmonar y disease, unspecified COPD/asthma. Spirometry at last check shows possible restriction and in the past no improvement post bronchodilator. Per her report normal CXR . She did not want spirometry performed today. ACT 20. Continue Trelegy and prn albuterol Allergic rhinitis due to ani mal (cat) (dog) hair and dander Follow allergen avoidance, meds and consider SCIT as an adjunctive treatment to current regimen Other chronic allergic conjunctivitis Gi zonia ocular signs and symptoms I encouraged allergy avoidance measures and meds as above. If symptoms persist, consider adding additional medications including intraocular antihistamine/mast cell stabilizer, PRN Allergic contact dermatitis due to metal s Nirmala appears to have contact dermatitis to nickel and neomycin. Recommend continued avoidance and consider patch testing in the future if needed Next Appt Details Follow Up: 6 Months, Reason: Spirometry/Flow Volume Loop Progress Notes * Nirmala OLIVERnneDOB: [birth year] (69 yo F)Acc No.[id number]:02/29/2024 Asthma F/U Patient: Nirmala MCGINNIS Provider: Caesar Maldonado MD :1955 A ge:68 Y S ex:Female Date:02/29/2024 Address:[address] [place], [place] [id number] Pcp:Manuela Miller Subjective: * Chief Complaints: * 1 . Asthma/COPD follow-up - much improvement with Trelegy. * HPI: * Introduction: HPI: Bo Oliver, a 67 year old with recurrent bronchitis, ARC on SCIT, migraines and possible asthma/COPD presenting for f/u evaluation of cough and shortness of breath. S he was last evaluated 02-23-2023. S he is taking Azelastine prn and Xyzal with improvement in congestion and rhinorrhea. She is also interested in starting immunotherapy..? She continues Trelegy and improvement in cough and shortness of breath. No night symptoms. No interval f jessica or steroids. S ome decrease in exercise tolerance. She missed a few days of therapy and developed shortness of breath. S he is using albuterol in the summer months. A guadalupe symptoms are occurring throughout the year without regard to season. She quit smoking 4 years ago and improvement in sinusitis since stopping. She has a 40 pack year history. N ormal CXR in 2019 per her report. Sleep study was performed at home through [facility]. S he develops skin irritation with nickel. She had a mole removed from her leg and developed blistering which was thought due to Neosporin. T slick, she reports no fevers, chills, night sweats or other constitutional symptoms. * ROS: A LLERGY: Positive p er the HPI and history, otherwise unremarkable.? S PECIAL SENSES: Positve for n one. C ONSTITUTIONAL: Positive for n one. E NT: Positive p er the HPI and history, otherwise unremarkable.? R ESPIRATORY: Positive p er the HPI and history, otherwise unremakable.? O PHTHALMOLOGY: Positive for p er the HPI and history, otherwise unremarkable. E NDOCRINOLOGY: Positive for n one. C ARDIOLOGY: Positive for n one. G ASTROENTEROLOGY: Positive for n one. U ROLOGY: Positive for n one. D ERMATOLOGY: Positive for p er the HPI and history, otherwise unremakable. N EUROLOGY: Positive for n one. H EMATOLOGY/LYMPH: Positive for n one. M USCULOSKELETAL: Positive for n one. P SYCHOLOGY: Positive for n one. A ll other review of systems per the HPI and history, otherwise unremarkable. * Medical History: * Medications: T aking NASAL WASHES N/A 1 QUART OF STERILIZED TAP WATER OR DISTILLED WATER, 1 TSP NACL, 1 PINCH OF BAKING SODA DIRECTED INTRANASALLY NEEDED , Notes to Pharmacist: *Please review for potential replacement for e-prescription and drug interaction check*, Taking Flonase Allergy Relief 50 MCG/ACT Suspension 2 spray(s) in each nostril once a day , Taking Trelegy Ellipta 200 MCG-62.5 MCG-25 MCG/INH POWDER 1 PUFF(S) INHALED ONCE A DAY , Notes to Pharmacist: *Please review and pick correct strength-formulation from Medispan options. If intended option is not shown, discontinue and re-order from Quick Search*, Taking PROAIR HFA 90 MCG/INH AEROSOL 2 PUFF(S) INHALED Q4-6 HOURS, PRN AND PER THE ASTHMA ACTION PLAN , Notes to Pharmacist: *Please review for potential replacement for e-prescription and drug interaction check*, Taking Metoprolol Succinate ER 100 MG Tablet Extended Release 24 Hour , Taking Escitalopram Oxalate 5 MG Tablet 2 tab(s) orally once a day , Taking Levocetirizine Dihydrochloride 5 MG Tablet 1 tab(s) orally once a day (in the evening) , Taking Azelastine HCl 137 MCG/SPRAY Solution 2 puffs in each nostril Nasally Twice a day Objective: * Vitals: * Examination: G eneral examination: General appearance: p leasant, well-developed, well-nourished. HEENT: c onjunctiva are clear bilaterally, no tenderness to palpation of the sinuses, TM's without evidence of acute infection, turbinates with pink mucosa, clear rhinorrhea is present, no polyps noted, no septal perforation, posterior oropharynx is clear, no exudates, no tongue swelling, and uvula is midline. Oral cavity: n ormal, no lesions. Neck, thyroid : s upple, non-tender, no anterior cervical lymphadenopathy. Breasts : n ot performed. Heart: R RR, S1-S2, no murmurs, no rubs, no gallops. Lungs: c lear to auscultation and percussion in all lung ventura, no wheezes or crackles. Neurologic exam: u nremarkable. Skin: n ormal, no rash, dermatographism, urticaria, angioedema. Peripheral pulses: n ormal (2+) bilaterally. Back: n ormal. Extremities: n ormal ROM, no clubbing, no cyanosis, no edema. Genitalia: n ot performed. Assessment: * Assessment: 1. C hronic obstructive pulmonary disease, unspecified - J44.9 (Primary) 2 .?Allergic rhinitis due to pollen - J30.1 3 . A llergic rhinitis due to animal (cat) (dog) hair and dander - J30.81 4 . O ther allergic rhinitis - J30.89 & #160; 5 . O ther chronic allergic conjunctivitis - H10.45 6 . A llergic contact dermatitis due to metals - L23.0 7 . A llergic contact dermatitis due to drugs in contact with skin - L23.3 Plan: * Treatment: 2. A llergic rhinitis due to pollen Continue NASAL WASHES 1 quart of sterilized tap water or distilled water, 1 tsp NaCl, 1 pinch of baking soda, N/A, as directed, intranasally, as needed, 30, QS, Refills PRN; C ontinue LEVOCETIRIZINE DIHYDROCHLORIDE tablet, 5 mg, 1 tab(s), orally, once a day (in the evening), 90 days, 90, Refills 1; C ontinue FLONASE spray, 50 mcg/inh, 2 spray(s), in each nostril, once a day, 30 day(s), 1, Refills 5. Notes: Nirmala clearly suffers from atopic disease based on our skin testing. Accordingly, we have introduced a new, aggressive medication regimen, discussed nasal washes and allergy-specific avoidance measures. Astelin discontinued in the past due to epistaxis. Afrin to only be used occasionally. She would like to start immunotherapy, We specific allergen immunotherapy as relates to the treatment and prevention of atopic disease. She is currently considering the risks, benefits and alternatives to this care. Risks: bleeding, infection, allergic reaction, anaphylaxis; Benefits: reduced need for medications, improved symptoms, disease modification. She is taking metoprolol for HTN and we discussed the difficulty in treating systemic reactions in patients taking beta blockers. She takes metoprolol at night. When receiving immunotherapy while on beta blockers, normally, patients hold the beta rupesh the morning of immunotherapy and take the medication 2 hours after leaving the office. She is going to discuss with Dr. Miller. 3. A llergic rhinitis due to animal (cat) (dog) hair and dander Notes: Follow allergen avoidance, meds and consider SCIT as an adjunctive treatment to current regimen 4. O ther chronic allergic conjunctivitis Notes: Given ocular signs and symptoms I encouraged allergy avoidance measures and meds as above. If symptoms persist, consider adding additional medications including intraocular antihistamine/mast cell stabilizer, PRN 5. A llergic contact dermatitis due to metals Notes: Nirmala appears to have contact dermatitis to nickel and neomycin. Recommend continued avoidance and consider patch testing in the future if needed * Procedure Codes: 9 6160 PT-FOCUSED HLTH RISK ASSMT, G8427 DOC MEDS VERIFIED W/PT OR RE, G9991 Pneum vax admin 60+ * Preventive Medicine: Counseling: D iet a s tolerated. E xercise C ontinue activity as usual. M edication instruction: N marleny steroid instruction: avoid septum, Watch for side effects of prescribed medications. E ducation: O ur staff spent an additional 30 minutes in direct contact with the patient educating them on their current diagnoses and proper treatment and prevention of symptoms and the proper use of medications. E ducation 2: O ur staff discussed the appropriate allergen avoidance measures and medication utilization including upper airway hygiene with daily nasal washes given the patient's clinical status and diagnoses. P atient education material sent to portal? Y es C are goal follow up plan BMI management provided Y es Above Normal BMI Follow-up D ietary management education, guidance, and counseling B P Management: FIRST HYPERTENSIVE BP READING FOLLOW-UP PLAN: F ollow-up 1 month REFERRAL TO ALTERNATIVE / PRIMARY CARE PROVIDER: Bo swift to general practitioner * Follow Up: 6 Months (Reason: Spirometry/Flow Volume Loop) * Billing Information: * Visit Code: 83809 Office Visit, Est Pt., Level 4. Modifiers: 25 * Procedure Codes: 44383 PT-FOCUSED HLTH RISK ASSMT. G8427 DOC MEDS VERIFIED W/PT OR RE. G9991 Pneum vax admin 60+. * Electronic signature of Agata Maldonado MD on 04/09/2025 at 12:23 PM CDT Sign off status: Pending * Provider: Caesar Maldonado MD Date: 0 02/29/2024 Generated for Franc farrell/Usha/eTdiamondsmitting on: 0 04/09/2025 12:23 PM CDT History and Physical Notes * HPI (History of Present Illness) Category Sub-Category Detail Notes Category Not es *Introduction HPI: Nirmala Oliver, a 67 year old with recurrent bronchitis, ARC on SCIT, migraines and possible asthma/COPD presenting for f/u evaluation of cough and shortness of breath. She was last evaluated 02-23-2023. She is taking Azelastine prn and Xyzal with improvement in congestion and rhinorrhea. She is also interested in starting immunotherapy.. She continues Trelegy and improvement in cough and shortness of breath. No night symptoms. No interval flares or steroids. Some decrease in exercise tolerance. She missed a few days of therapy and developed shortness of breath. She is using albuterol in the summer months. Above symptoms are occurring throughout the year without regard to season. She quit smoking 4 years ago and improvement in sinusitis since stopping. She has a 40 pack year history. Normal CXR in 2019 per her report. Sleep study was performed at home through [facility]. She develops skin irritation with nickel. She had a mole removed from her leg and developed blistering which was thought due to Neosporin. Today, she reports no fevers, chills, night sweats or other constitutional symptoms Examination Category Sub-Category Detail Notes Category Not es General examination HEENT: conjunctiva are clear bilaterally, no tenderness to palpation of the sinuses, TM's without evidence of acute infection, turbinates with pink mucosa, clear rhinorrhea is present, no polyps noted, no septal perforation, posterior oropharynx is clear, no exudates, no tongue swelling, and uvula is midline Neck, thyroid : supple, non-tender, no anterior cervical lymphadenopathy Heart: RRR, S1-S2, no murmu rs, no rubs, no gallops Lungs: clear to auscultatio n and percussion in all lung ventura, no wheezes or crackles Abdomen: Extremities: normal ROM, no clubb ing, no cyanosis, no edema General appearance: pleasant, well-devel oped, well-nourished Skin: normal, no rash, kell matographism, urticaria, angioedema Neurologic exam: unremarkable Oral cavity: normal, no lesions Breasts : not performed Peripheral pulses: normal (2+) bilatera lly Back: normal Genitalia: not performed
--- OUTSIDE RECORDS SUMMARY | 2024-03-20 05:15 | XMS_ITS ---
Author Organization [facility] [place] ([address]) Address [address] [place] [address] Care Team Providers Care Almond Grinder Name Role Phone Manuela Miller Primary Care Provider Samantha Isbell Unavailable [phone] REASON FOR VISIT Asthma/COPD follow-up - much improvement with Trelegy Medications Medication SIG (Take, Route, Frequency, Duration) Notes Start Date End Date Status TRELEGY ELLIPTA 200 mcg-62.5 mcg-25 mcg/inh 1 puff(s) inhaled once a day; Duration: 90 days Active FLONASE 50 mcg/inh 2 spray(s) in each nostril once a day; Duration: 30 day(s) Active LEVOCETIRIZINE DIHYDROCHLORIDE 5 mg 1 tab(s) orally once a day (in the evening); Duration: 90 days Active NASAL WASHES N/A as directed intranasally as needed; Duration: 30 Active Azelastine HCl 137 MCG/SPRAY 2 puffs in each nostril Nasally Twice a day; Duration: 30 days 01/11/2024 Active Escitalopram Oxalate 5 MG 2 tab(s) orally once a day Active Metoprolol Succinate ER 100 MG Active Trelegy Ellipta 200 MCG-62.5 MCG-25 MCG/INH 1 PUFF(S) INHALED ONCE A DAY; Duration: 90 DAYS *Please review and pick correct strength-formulat ion from Medispan options. If intended option is not shown, discontinue and re-order from Quick Search* Active Flonase Allergy Relief 50 MCG/ACT 2 spray(s) in each nostril once a day; Duration: 30 day(s) Active Levocetirizine Dihydrochloride 5 MG 1 tab(s) orally once a day (in the evening); Duration: 90 days Active PROAIR HFA 90 mcg/inh 2 puff(s) inhaled Q4-6 hours, PRN and per the asthma action plan; Duration: 30 day(s) Active Encounters Encounter Location Date Provider Diagnosis [facility] [address] [address] 03/20/2024 Samantha Maldonado Allergic rhinitis du e to [...] Treatment Notes Treatment Clinical Notes Section Notes 03/20/2024 Allergic rhinitis due to pollen (ICD-10 - [...] is going to discuss with Dr. Miller. 03/20/2024 Chronic obstructive pulmonary disease, unspecified (ICD-10 - J44.9) COPD/asthma. Spirometry at last check shows possible restriction and in the past no improvement post bronchodilator. Per her report normal CXR -2019. She did not want spirometry performed today. ACT 20. Continue Trelegy and prn albuterol 03/20/2024 Allergic rhinitis due to animal (cat) (dog) hair and dander (ICD-10 - J30.81) Follow allergen avoidance, meds and consider SCIT as an adjunctive treatment to current regimen 03/20/2024 Other allergic rhinitis (ICD-10 - J30.89) 03/20/2024 Other chronic allergic conjunctivitis (ICD-10 - H10.45) Given ocular signs and symptoms I encouraged allergy avoidance measures and meds as above. If symptoms persist, consider adding additional medications including intraocular antihistamine/mas t cell stabilizer, PRN 03/20/2024 Allergic contact dermatitis due to metals (ICD-10 - L23.0) Nirmala appears to have contact dermatitis to nickel and neomycin. Recommend continued avoidance and consider patch testing in the future if needed 03/20/2024 Allergic contact dermatitis due to drugs in contact with skin (ICD-10 - L23.3) 03/20/2024 Other Plan Of Treatment Medication Medication Name Sig Start Date Stop Date Notes TRELEGY ELLIPTA 200 mcg-62.5 mcg-25 mcg/inh 1 puff(s) inhaled once a day; Duration: 90 days FLONASE 50 mcg/inh 2 spray(s) in each n ostril once a day; Duration: 30 day(s) LEVOCETIRIZINE DIHYDROCHLORI DE 5 mg 1 tab(s) orally once a day (in the evening); Duration: 90 days NASAL WASHES N/A as directed intranas ally as needed; Duration: 30 PROAIR HFA 90 mcg/inh 2 puff(s) inhaled Q4-6 hours, PRN and per the asthma action plan; Duration: 30 day(s) Treatment Notes Assessment Notes Allergic rhinitis due [...] * Nirmala OLIVERnneDOB: [birth year] (69 yo F)Acc No.[id number]:03/20/2024 Asthma F/U Patient: Nirmala MCGINNIS Provider: Caesar Maldonado MD :1955 A ge:68 Y S ex:Female Date:03/20/2024 Address:[address] [place], [place] [id number] Pcp:Manuela Miller Subjective: * Chief Complaints: * [...] Sleep study was performed at home through [facility]. S he develops skin irritation with [...] * Medical History: * Medications: T aking Flonase Allergy Relief 50 MCG/ACT Suspension 2 spray(s) in each nostril once a day , Taking Trelegy Ellipta 200 MCG-62.5 MCG-25 MCG/INH POWDER 1 PUFF(S) INHALED ONCE A DAY , Notes to Pharmacist: *Please review and pick correct strength-formulation from [employer] options. If intended option is not shown, discontinue and re-order from Quick Search*, Taking Metoprolol Succinate ER 100 MG Tablet Extended Release 24 Hour , Taking Escitalopram Oxalate 5 MG Tablet 2 tab(s) orally once a day , Taking Levocetirizine Dihydrochloride 5 MG Tablet 1 tab(s) orally once a day (in the evening) , Taking Azelastine HCl 137 MCG/SPRAY Solution 2 puffs in each nostril Nasally Twice a day , Taking NASAL WASHES N/A 1 quart of sterilized tap water or distilled water, 1 tsp NaCl, 1 pinch of baking soda as directed intranasally as needed , Taking LEVOCETIRIZINE DIHYDROCHLORIDE 5 mg tablet 1 tab(s) orally once a day (in the evening) , Taking FLONASE 50 mcg/inh spray 2 spray(s) in each nostril once a day , Taking TRELEGY ELLIPTA 200 mcg-62.5 mcg-25 mcg/inh powder 1 puff(s) inhaled once a day , Taking PROAIR HFA 90 mcg/inh aerosol 2 puff(s) inhaled Q4-6 hours, PRN and per the asthma action plan Objective: * Vitals: * Examination: G eneral [...] Loop) * Billing Information: * Visit Code: 07657 Office Visit, Est Pt., Level 4. Modifiers: 25 * Procedure Codes: 58022 PT-FOCUSED HLTH RISK ASSMT. G8427 DOC MEDS VERIFIED W/PT OR RE. G9991 Pneum vax admin 60+. * Electronic signature of Agata Maldonado MD on 04/09/2025 at 12:23 PM CDT Sign off status: Pending * Provider: Caesar Maldonado MD Date: 0 03/20/2024 Generated for Franc farrell/Usha/[place] on: 04/09/2025 12:23 PM CDT History and Physical [...] Sleep study was performed at home through [facility]. She develops skin irritation with nickel. [...]
[2025-04-09 12:20] LABS: Hematocrit 41.0 % (37.0-47.0); Hemoglobin 12.7 g/dL (12.0-15.0); Immature Granulocyte Percent A 0.4 % (0-0.5); Lymphocytes Absolute Auto 1.44 K/mm3 (0.9-3.2); Mean Corpuscular HGB Conc 31.0 g/dl (32-36); Mean Corpuscular Hemoglobin 28.9 pg (26-34); Mean Corpuscular Volume 93.4 fl (80-100); Nucleated Red Blood Cells Absolute Auto 0.000 K/mm3 (0.0-0.012); Nucleated Red Blood Cells Perc 0.0 % (0.0-0.2); Platelet Count Result 222 k/mm3 (150-375); Red Blood Count 4.39 M/mm3 (4.2-5.4); White Blood Count 7.0 K/mm3 (4.5-10.0)
--- OUTSIDE RECORDS SUMMARY | 2025-04-09 12:24 | XMS_ITS | Clinical Summary ---
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 Gender Identity Not on file Sexual Orientation Not on file Plan of Treatment Health Maintenance Due Date Last Done Comments Colorectal Cancer Screening Colonoscopy (10 Years) 1955 Hepatitis C 1974 DTaP, Tdap and Td Vaccines ( 1 - Tdap) 10/08/1975 Mammogram Screening 1996 Pneumococcal Vaccine: 50+ Ye ars (1 of 1 - PCV) 2006 Zoster Vaccines (1 of 2) 2006 Dexa Scan (General) 2021 COVID-19 Vaccine ( - 2023-2 5 season) 2025 RSV Immunization or 60+ Years (1 - 1-dose 75+ series) 10/08/2031 Meningococcal B Vaccine Aged Out No l onger eligible based on patient's age to complete this topic Meningococcal Vaccine Aged Out No nkechi roberto eligible based on patient's age to complete this topic RSV Immunizations Under 20 Months Aged Out No longer eligible based on patient's age to complete this topic Insurance [facility] OPEN ACCESS [facility] Care Teams Marine Engine Mechanic Relationship Specialty Start Date End Date Manuela Miller MD PCP - General FAMILY PRACTICE 08/25/19
--- OUTSIDE RECORDS SUMMARY | 2025-04-09 12:24 | XMS_ITS | Patient Health Record ---
Author Organization [facility] ([address]) Address [address] [place] [address] Care Team Providers Care Garment Form Assembler Name Role Phone Manuela Miller Primary Care Provider Samantha Isbell Unavailable [phone] Allergies No Known Allergies Reason For Referral No Information Medications Medication SIG (Take, Route, Frequency, Duration) Notes Start Date End Date Status FLONASE 50 mcg/inh 2 spray(s) in each nostril once a day; Duration: 30 day(s) Active NASAL WASHES N/A as directed intranasally as needed; Duration: 30 Active Metoprolol Succinate ER 100 MG Active Flonase Allergy Relief 50 MCG/ACT 2 spray(s) in each nostril once a day; Duration: 30 day(s) Active PROAIR HFA 90 mcg/inh 2 puff(s) inhaled Q4-6 hours, PRN and per the asthma action plan; Duration: 30 day(s) Active TRELEGY ELLIPTA 200 mcg-62.5 mcg-25 mcg/inh 1 puff(s) inhaled once a day; Duration: 90 days Active LEVOCETIRIZINE DIHYDROCHLORIDE 5 mg 1 tab(s) orally once a day (in the evening); Duration: 90 days Active Trelegy Ellipta 200 MCG-62.5 MCG-25 MCG/INH 1 PUFF(S) INHALED ONCE A DAY; Duration: 90 days *Please review and pick correct strength-formulat ion from Medispan options. If intended option is not shown, discontinue and re-order from Quick Search* Active Azelastine HCl 137 MCG/SPRAY 2 puffs in each nostril Nasally Twice a day; Duration: 30 days 01/11/2024 Active Levocetirizine Dihydrochloride 5 MG 1 tab(s) orally once a day (in the evening); Duration: 90 days Active Levocetirizine Dihydrochloride 5 MG 1 tablet in the evening Orally Once a day; Duration: 90 days 05/16/2024 Active Escitalopram Oxalate 5 MG 2 tab(s) orally once a day Active Albuterol Sulfate HFA 108 (90 Base) MCG/ACT 2 puffs as needed Inhalation every 4 hrs; Duration: 30 days 05/16/2024 Active Immunizations Vaccine Route Administration Date Status Comme nts Flucelvax Unknown 07/18/2019 Administered Influenza Unknown 04/19/2019 Administered Portal Infor mation NOC Flucelevax Quadrivalent Unknown 07/23/2019 Administered Social History Tobacco Use: Social History Observation Description Date Details (start date - stop date) Never Smoker NA - NA Tobacco Control (Standard) Question Answer Notes Tobacco use: Nonsmoker Problems Problem Type SNOMED Code ICD Code Onset Dates Problem Status W/U Status Risk Notes Problem Chronic allergic conjunctivitis (07750594) Other chronic allergic conjunctivitis (H10.45) Active confirmed Problem Allergic rhinitis caused by pollen (disorder) (41837406) Allergic rhinitis due to pollen (J30.1) Active confirmed Problem Allergic rhinitis (43464202) Other allergic rhinitis (J30.89) Active confirmed Problem Uncomplicated moderate persistent asthma (496493809) Moderate persistent asthma, uncomplicated (J45.40) Active confirmed Problem Allergic contact dermatitis caused by metal and/or metal compound (disorder) (5488443820) Allergic contact dermatitis due to metals (L23.0) Active confirmed Problem Allergic contact dermatitis caused by drug in contact with skin (293841789) Allergic contact dermatitis due to drugs in contact with skin (L23.3) Active confirmed Problem Cough (51553789) Cough (R05) Active confirmed Problem Allergic rhinitis caused by animal hair and dander (140001581795663) Allergic rhinitis due to animal (cat) (dog) hair and dander (J30.81) Active confirmed Problem Chronic obstructive pulmonary disease (41890880) Chronic obstructive pulmonary disease, unspecified (J44.9) Active confirmed Vital Signs Oximetry 97 % 05/16/2024 Blood pressure diastolic 81 mm Hg 05/16/2024 Height 60 in 05/16/2024 Blood pressure systolic 188 mm Hg 05/16/2024 Weight 182.8 lbs 05/16/2024 BMI 35.7 kg/m2 05/16/2024 Encounters Encounter Location Date Provider Diagnosis [address] [address] 05/16/2024 Samantha Maldonado Allergic rhinitis du e to pollen J30.1 ; Chronic obstructive pulmonary disease, unspecified J44.9 ; Allergic rhinitis due to animal (cat) (dog) hair and dander J30.81 ; Other allergic rhinitis J30.89 ; Other chronic allergic conjunctivitis H10.45 ; Allergic contact dermatitis due to metals L23.0 ; Allergic contact dermatitis due to drugs in contact with skin L23.3 and Moderate persistent asthma, uncomplicated J45.[address] [address] 04/30/[address] [address] 05/16/2024 Samantha Maldonado Chronic obstructive pulmonary disease, unspecified J44.[address] [address] 05/01/2024 Samantha Maldonado Assessments Encounter Date Diagnosis (ICD Code) Assessment Notes Treatment Notes Treatment Clinical Notes Section Notes 05/16/2024 Allergic rhinitis due to pollen (ICD-10 - J30.1) Nirmala clearly suffers from atopic disease based on our skin testing. Accordingly, we have introduced a new, aggressive medication regimen, discussed nasal washes and allergy-specific avoidance measures. Eric discontinued in the past due to epistaxis. We discussed immunotherapy and she would like to avoid at this time. 05/16/2024 Chronic obstructive pulmonary disease, unspecified (ICD-10 - J44.9) COPD/asthma. ACT 20. Spirometry today continues to show possible restriction Per her report normal CXR 2-2019. Continue Trelegy and prn albuterol 05/16/2024 Chronic obstructive pulmonary disease, unspecified (ICD-10 - J44.9) 05/16/2024 Allergic rhinitis due to animal (cat) (dog) hair and dander (ICD-10 - J30.81) Follow allergen avoidance, meds and consider SCIT as an adjunctive treatment to current regimen 05/16/2024 Other allergic rhinitis (ICD-10 - J30.89) 05/16/2024 Other chronic allergic conjunctivitis (ICD-10 - H10.45) Given ocular signs and symptoms I encouraged allergy avoidance measures and meds as above. If symptoms persist, consider adding additional medications including intraocular antihistamine/mas t cell stabilizer, PRN 05/16/2024 Allergic contact dermatitis due to metals (ICD-10 - L23.0) Nirmala appears to have contact dermatitis to nickel and neomycin. Recommend continued avoidance and consider patch testing in the future if needed 05/16/2024 Allergic contact dermatitis due to drugs in contact with skin (ICD-10 - L23.3) 05/16/2024 Moderate persistent asthma, uncomplicated (ICD-10 - J45.40) 05/16/2024 Other Plan Of Treatment No Information Insurance Providers Payer Name Payer Address Payer Phone Subscriber Number Group Number Insured Name Patient Relationship to Insured Coverage Start Date Coverage End Date [employer] [address] [place] [address] [id number] Nirmala Pérez Self - patient is the insured Medical (General) History Medical History History ICD Code Migraine without aura, not intractable, without status migrainosus Other dystonia Arnold-Chiari syndrome without spina bif cami or hydrocephalus COPD Surgical History Surgery Date(Month/Year) Hemangioma removed - right wrist 979 Hemangioma Removed - left shoulder 07/18 Fibroid Removed 07/18/1992 Hysterectomy 07/18/2001
[2025-04-09 12:45] LABS: Alanine Aminotransferase 17 U/L (6-35); Albumin Level 4.4 g/dL (3.5-5.1); Alkaline Phosphatase 82 U/L (38-126); Anion Gap 8 mmol/L (4-12); Aspartate Amino Transferase 22 U/L (14-36); Bilirubin,Total 0.8 mg/dL (0.2-1.3); Blood Urea Nitrogen 13 mg/dL (7-17); Calcium 9.0 mg/dL (8.4-10.2); Carbon Dioxide 28 mmol/L (22-30); Chloride 104 mmol/L (98-107); Cholesterol 184 mg/dL (0-200); Estimated Glomerular Filt Rate > 60; Glucose 90 mg/dL (65-110); HDL Direct 40 mg/dL; Potassium 4.1 mmol/L (3.4-5.0); Sodium 140 mmol/L (137-145); Total Protein 7.2 g/dL (6.3-8.2); Triglycerides 167 mg/dL (<150)
== END 2025-04-09 11:52 | disposition home or self-care (01) ==
LOC: ANHLAB 11:53
PROVIDERS: PCP Family Medicine; Visit Provider Family Medicine
DX: E11.9 Type 2 diabetes mellitus without complications (principal); E78.2 Mixed hyperlipidemia; E55.9 Vitamin D deficiency, unspecified; G24.8 Other dystonia
CPT/HCPCS: 36415; 80053; 80061; 82306; 85025